=== PATIENT | female | born 2000 | race Two or more races ===

== ENCOUNTER 2024-12-21 18:00 | Emergency (ER) | payer OTHER ==
[2024-12-21] MEDS ORDERED: HYDROcodone/Acetaminophen 5/325 mg Tablet ONE (19:32)
[2024-12-21] MEDS ORDERED: Ketorolac Tromethamine 30 MG (1 mL) VIAL ONE (19:32)
[2024-12-21] MEDS ORDERED: Methocarbamol 500 MG TAB ONE (19:32)
[2024-12-21 19:55] LABS: Pregnancy Test - Urine (BHCG) Negative (Negative); Pregu Control Background? CLEAR/WHITE (CLR/WHITE); Pregu Control Bar Appear? YES (CONTROL BAR)
== END 2024-12-21 22:01 | disposition home or self-care (01) ==
LOC: CSHERS 18:00
DX: M54.50 Low back pain, unspecified (principal); F17.290 Nicotine dependence, other tobacco product, uncomplicated
CPT/HCPCS: 72100; 81025; 96372; 99283; J1885